=== PATIENT | male | born 1970 | race African-American/Black ===

== ENCOUNTER 2021-10-24 20:45 | Emergency (ER) | payer SELFPAY ==
--- NOTE | 2021-10-24 20:48 | NUR ---
Patient BIB [facility] for possible OD. Per report from [facility] ,patient was found laying on side walk unconscious with pinpoint pupils and was given 4mg of Narcan nasal and woke up. Patient upon arrival awake, A/Ox3 and was angry stating " I did not want to be brought to the ER, I don't want to be seen." Patient walked out of ER with steady gait.
--- NOTE | 2021-10-24 21:00 | NUR ---
Patient left without being triaged or seen by ERM.
== END 2021-10-24 21:12 | disposition left against medical advice (07) ==
LOC: ER 20:45
DX: Z53.21 Procedure and treatment not carried out due to patient leaving prior to being seen by health care provider (principal)